=== PATIENT | male | born 1950 | race Caucasian/White ===

== ENCOUNTER 2024-10-04 19:07 | Emergency (ER) | payer MEDICARE, SELFPAY ==
[2024-10-04 19:09] VITALS: BP 150/79; PULSE 78; RESP 18; TEMP 36.8; O2SAT 99; BMI 21.5
--- NOTE | 2024-10-04 19:15 | DI.CT.S_ITS ---
PROCEDURE: CT HEAD/BRAIN WO CON INDICATIONS: fall/hit head/on Plavix TECHNIQUE: Noncontrast 4.5 mm thick angled axial sections acquired from the foramen magnum to the vertex, with coronal and sagittal reformats. For radiation dose reduction, the following was used: automated exposure control, adjustment of mA and/or kV according to patient size. COMPARISON: None. FINDINGS: Image quality: Diagnostic. CSF spaces: Basal cisterns are patent. No extra-axial fluid collections. The ventricles are symmetric in size and shape. Brain: No intracranial bleeds or mass effect. There is cerebral volume loss, with resultant ventricular and sulcal prominence. There are periventricular and deep white matter chronic small vessel ischemic changes. There is intracranial internal carotid artery atherosclerosis. Skull and face: Calvarium and visualized facial bones appear intact, without suspicious lesions. Sinuses: Visualized sinuses and mastoids are clear. IMPRESSION: No acute intracranial pathology. Dictated by: Trae Gonzalez M.D. on 10/04/2024 at 20:02 Approved by: Trae Gonzalez M.D. on 10/04/2024 at 20:02
--- NOTE | 2024-10-04 19:15 | DI.CT.S_ITS ---
PROCEDURE: CT CERVICAL SPINE WO CON INDICATIONS: fall/hit head/on Plavix TECHNIQUE: Noncontrast 3 mm thick sections acquired from the skull base to the T4 level. Sagittal and coronal reformats were then constructed. For radiation dose reduction, the following was used: automated exposure control, adjustment of mA and/or kV according to patient size. COMPARISON: None. FINDINGS: Image quality: Excellent. Bones: No acute fracture or subluxation. Straightening of the cervical lordosis. Loss of the intervertebral disc heights with pseudoarthrosis at the C5-C7 vertebral bodies multilevel facet and uncinate arthropathy. Partially identified median sternotomy wires. Soft tissues: Prevertebral soft tissues are normal in thickness. No paravertebral hematomas. No apical pneumothoraces. Severe bilateral common carotid bulb calcifications. IMPRESSION: No acute CT abnormality of the cervical spine. Dictated by: Trae Goznalez M.D. on 10/04/2024 at 20:02 Approved by: Trae Gonzalez M.D. on 10/04/2024 at 20:04
--- NOTE | 2024-10-04 19:15 | PC.NURSE ---
Pt's male tooler drove up to ambulance bay door and rang door rivera. When answered he, immediately started yelling stating he needed help now. Informed him a nurse would be out in a moment and he continued to yell. When this RN and another rn approached the ambulance bay door, tooler banging on door, yelling at staff. [employer] Salesperson was told to calm down, it wasn't until I turned my attention to the patient that tooler stopped yelling. Pt alert oriented x3. able to follow directions. After patient was taken into ER, tooler directed to the ER entrance, tooler followed directions and returned to many entrance.
--- NOTE | 2024-10-04 19:16 | EKG_ITS ---
[address] [address] [address], [place] [address] Test Date: 2024-10-04 Pat Name: Tra Joy Department: Room: Gender: Male Dogman/Woman: MARISOL : 1950 Requested By: Order Number: [id number] Reading MD: Blake Barrientos MD Measurements Intervals [place] Rate: 79 P: CT: 136 QRS: 13 QRSD: 82 T: 46 QT: 432 QTc: 495 Interpretive Statements Normal sinus rhythm Electronically Signed On 10-05-2024 7:41:57 PDT by Blake Barrientos MD
--- NOTE | 2024-10-04 19:45 | PC.NURSE ---
RN preparing meds for another patient at computer at nurses station when male grain scooper of patient steps out of room and asks for someone to come to the exam room immediatelty
--- NOTE | 2024-10-04 19:45 | PC.NURSE ---
RN at nurses station preparing meds for another patient when male oil inspector of this patient steps out of room and states I need someone in this room immediately to take care of him. He has an open head wound that needs to be cleaned and closed right now!. RN to room with introduction and male oil inspector continues to aggressively speak about the wound needing to be immediately cared for. Began to speak to patient and male oil inspector about current situation, inform that things are currently being done such as imaging and initial assessment by a chief data officer. Male oil inspector continues to escalate, makes statements about being a medic cash analyst and when a wound came in it was protocol to assess and clean the wound immediately to reduce chances of infection. RN begins to speak again, states [place] to male oil inspector and he interrupts, leans over ED stretcher and points finger at RN You will not address me like that or I will address you as BITCH! RN states to male visitor that he will not address me as such and will not speak to me in that way or he will be asked to leave. And that I would only call him Sir from now on. Male oil inspector seems to settle some and we continue to discuss current day appropriate care for a wound and head injury. At this time Rachelle Marsh RN charge came into the room and continued to listen to the conversation. Sometime through continued conversation male oil inspector again makes a statement about what names we will call each other at which time charger takes over the conversation stating that if he continues he will be asked to leave.
[2024-10-04 20:00] VITALS: BP 140/72; PULSE 72; RESP 19; O2SAT 94
[2024-10-04 20:30] VITALS: BP 128/79; PULSE 82; RESP 22; O2SAT 95
--- NOTE | 2024-10-04 20:40 | ED.FALL ---
HPI - Fall General Chief Complaint: Trauma Stated Complaint: Fall on thinners Time Seen by Provider: 10/04/24 19:29 Source: patient Mode of arrival: Wheelchair History of Present Illness HPI Narrative: 74-year-old male past medical history of HIV, hypertension presenting for mechanical trip and fall, he states that he is here visiting had a mechanical trip and fall in his host bathroom due to the fact that he slipped on the water in the bathtub. Denies LOC is on Plavix, he denies any other injuries at this time. He states he is up-to-date on his tetanus he denies any other injuries Related Data Allergies Allergy/AdvReac Type Severity Reaction Status Date / Time No Known Drug Allergies Allergy Verified 10/04/24 19:14 Review of Systems Review of Systems Narrative: General: Positive fall, Denies fever, chills, weight loss HEENT: Denies headache, eye drainage, eye irritation, head trauma, sore throat, voice change Cardiovascular: Denies any chest pain, palpitations, tachycardia Respiratory: Denies any shortness of breath, cough, wheeze, stridor GI/: Denies any abdominal pain, nausea, vomiting, diarrhea, bright red blood per rectum, melanotic stools, urinary frequency, urinary retention, dysuria, hematuria MSK: Denies any joint pain, muscle pains, swelling Skin: Cut to the top of the head Neuro: Denies any headache, lightheadedness, dizziness, fainting, weakness Psych: Denies SI/HI Patient History Social History Smoking Status: Never smoker Smoking Status: Never smoker Exam Narrative Exam Narrative: General: Cooperative, well-developed, not in acute distress HEENT: Laceration noticed the top of the head not actively bleeding approximately 3 cm in Y shape Neck: Active full range of motion, atraumatic Chest: Normal to inspection, negative crepitus, no overlying erythema ecchymosis Respiratory: Normal respiratory effort, not in acute respiratory distress, clear to auscultation bilaterally negative cough, wheeze, tachypnea, rhonchi, rales Cardiology: Regular rate rhythm negative gallop, murmur, rubs GI/: No tenderness to palpation, soft, non rigid, normal to inspection, exam deferred MSK: Full active range of motion in all 4 extremities, atraumatic, no tenderness to palpation of any bony prominences Skin: No rashes or lesions noted Neuro: Alert awake oriented x3, moves all 4 extremities spontaneously, cranial nerves intact, able to answer all questions appropriately follows commands appropriately Psych: Cooperative, negative suicidal or homicidal ideations Initial Vital Signs Initial Vital Signs: Vital Signs Temperature 98.3 F 10/04/24 19:09 Pulse Rate 78 10/04/24 19:09 Respiratory Rate 18 10/04/24 19:09 Blood Pressure 150/79 H 10/04/24 19:09 Pulse Oximetry 99 10/04/24 19:09 Oxygen Delivery Method Room Air 10/04/24 19:09 Procedures Laceration Repair Laceration 1: Time of procedure: 20:47 Site: scalp Description: other (Y shaped) Depth: simple, single layer Local Anesthetic: lidocaine 2% and with epi Amount of anesthesia used (mL): 8 Skin layer closed with: eddie (4) Course Orders Ordered: ED Orders 10/04/24 19:15 CT cervical spine wo con Stat CT head/brain wo con Stat EKG-12 Lead Stat Discontinued Medications Lidocaine/Epinephrine (Lidocaine 2% W/Epi Inj 10 Ml Vial) 10 ml INJ NOW ONE Stop: 10/04/24 20:46 Last Admin: 10/04/24 20:53 Dose: 10 ml Documented By: LS Vital Signs Vital signs: Vital Signs - 8 hr 10/04/24 19:09 10/04/24 20:00 10/04/24 20:00 Temperature 98.3 F Pulse Rate 78 72 Respiratory Rate 18 19 Blood Pressure 150/79 H 140/72 Pulse Oximetry 99 94 Oxygen Delivery Method Room Air 10/04/24 20:30 10/04/24 20:30 Temperature Pulse Rate 82 Respiratory Rate 22 Blood Pressure 128/79 Pulse Oximetry 95 Oxygen Delivery Method MDM - Fall Differential Diagnosis Differential diagnosis: Likely other (Intracranial hemorrhage, cervical neck fracture, arrhythmia) Imaging Data CT scan - head: Radiologist's Impression: [address] [address] [address] Scan Report Signed Patient: Tar Joy MR#: [id number] : 1950 Acct:[id number] Age/Sex: 74 / M Date of Service: 10/04/24 Loc: ED Accession Number: [id number] Procedure: CT head/brain wo con Ordering Provider: Emilio Jj D.O. PROCEDURE: CT HEAD/BRAIN WO CON INDICATIONS: fall/hit head/on Plavix TECHNIQUE: Noncontrast 4.5 mm thick angled axial sections acquired from the foramen magnum to the vertex, with coronal and sagittal reformats. For radiation dose reduction, the following was used: automated exposure control, adjustment of mA and/or kV according to patient size. COMPARISON: None. FINDINGS: Image quality: Diagnostic. CSF spaces: Basal cisterns are patent. No extra-axial fluid collections. The ventricles are symmetric in size and shape. Brain: No intracranial bleeds or mass effect. There is cerebral volume loss, with resultant ventricular and sulcal prominence. There are periventricular and deep white matter chronic small vessel ischemic changes. There is intracranial internal carotid artery atherosclerosis. Skull and face: Calvarium and visualized facial bones appear intact, without suspicious lesions. Sinuses: Visualized sinuses and mastoids are clear. IMPRESSION: No acute intracranial pathology. CT - cervical spine: Radiologist's Impression: [place] [address] CT Scan Report Signed Patient: Tra Joy MR#: [id number] : 1950 Acct:[id number] Age/Sex: 74 / M Date of Service: 10/04/24 Loc: ED Accession Number: [id number] Procedure: CT cervical spine wo con Ordering Provider: Emilio Jj D.O. PROCEDURE: CT CERVICAL SPINE WO CON INDICATIONS: fall/hit head/on Plavix TECHNIQUE: Noncontrast 3 mm thick sections acquired from the skull base to the T4 level. Sagittal and coronal reformats were then constructed. For radiation dose reduction, the following was used: automated exposure control, adjustment of mA and/or kV according to patient size. COMPARISON: None. FINDINGS: Image quality: Excellent. Bones: No acute fracture or subluxation. Straightening of the cervical lordosis. Loss of the intervertebral disc heights with pseudoarthrosis at the C5-C7 vertebral bodies multilevel facet and uncinate arthropathy. Partially identified median sternotomy wires. Soft tissues: Prevertebral soft tissues are normal in thickness. No paravertebral hematomas. No apical pneumothoraces. Severe bilateral common carotid bulb calcifications. IMPRESSION: No acute CT abnormality of the cervical spine. ECG Data Interpretation: EKG interpreted by ED physician sinus 79 beats per minute QTC 495 normal axis no STEMI MDM Narrative Medical decision making narrative: 74-year-old male with a past medical history of hypertension HIV presents for evaluation of mechanical trip and fall states he slipped in the bathtub states that he is visiting from [place], he states he is on Plavix modified trauma was called immediately given patient on Plavix, CT scan of the head and neck were negative for any acute findings, patient did have a Y shaped laceration to the top of his scalp not actively bleeding was repaired with 4 eddie, patient not complaining of any other injuries he is able to stand bear weight ambulate unassisted here in the emergency department he was given strict return precautions he verbalized understanding of this and agrees to being discharged home with outpatient follow up Critical Care Time Critical Care Time Critical Care Time: Yes Total Critical Care Time: 30 Attestation: Authorized and Performed by: Emilio Jj DO Total critical care time: Approximately [30] minutes Due to a high probability of clinically significant, life threatening deterioration, the patient required my highest level of preparedness to intervene emergently and I personally spent this critical care time directly and personally managing the patient. This critical care time included obtaining a history; examining the patient; pulse oximetry; ordering and review of studies; arranging urgent treatment with development of a management plan; evaluation of patient's response to treatment; frequent reassessment; and, discussions with other providers. This critical care time was performed to assess and manage the high probability of imminent, life-threatening deterioration that could result in multi-organ failure. It was exclusive of separately billable procedures and treating other patients and teaching time. Please see MDM section and the rest of the note for further information on patient assessment and treatment. Discharge Plan Departure Patient Disposition: Home Clinical Impression: Ground-level fall, Closed head injury, Complex laceration of scalp Instructions: DI for Laceration Repair -- Eddie, DI for Closed Head Injury Activity Restrictions/Additional Instructions: Please follow up with your primary care doctor You have 4 eddie that need to be removed in a proximally 1 week Please read the discharge instructions sheet carefully and bring all papers to all doctor follow-up visits, as it may contain information that your doctor may want to see. Disease processes change and evolve, if your symptoms worsen or if you develop any new symptoms that are concerning to you please return for evaluation. Your evaluation today does not show any evidence of any life-threatening/serious illnesses requiring admission to the hospital or surgery. Please follow-up with your doctor for re-evaluation in approximately 1 day. Seek immediate medical attention for any worrisome symptoms. *If you do not have a primary care provider please contact the [facility] Resource line at [phone]. They will ask some questions about your medical history and help get you set up with a doctor in the community. Stand Alone Forms: Patient Portal/API/Survey
[2024-10-04] MEDS: LIDOCAINE 2% W/EPI INJ 10 ML VIAL INJ (20:53)
[2024-10-04 21:00] VITALS: BP 138/84; PULSE 70; RESP 23; O2SAT 98
--- NOTE | 2024-10-04 21:28 | PC.NURSE ---
Pts spouse came out of room 6 demanding a nurse see the patient. Kelsea entered the room to speak to the patient and the spouse. Shortly after Malou DORSEY came to me and said that the patients spouse was being aggressive toward Kelsea and he was calling her a bitch. I entered the room and the patient was telling Kelsea that it was inappropriate that no one was repairing the wound on the patients head. Kelsea informed them about the plan of care and that the doctor would be in to see him as soon as he could. The patients spouse began to raise his voice and become more demanding about the patients care. I asked the patients spouse not to speak to staff in that manner;raising his voice and swearing at staff. The patients spouse asked me if I knew what his profession was which I responded it doesn't matter to me what your profession is,we would not come to your place of business and speak to you in this manner. 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 Pt agreed to stop and Kelsea and I walked out of the room. Shortly after the patients spouse walked out to the nurses station and demanded that the doctor come into repair the wound on the patients head. I informed him that the provider would be in as soon as he could. He then began reaching over the nurses station and pointing to different staff members asking if they were qualified to clean the patient head. I asked him to return to room 6 which he did. I entered room 6 to inform the patient about his care and that the provider may need to numb the wound prior to cleaning the wound which the patient was content with. The patients spouse stood up and said something which I do not recall his words. I do recall that he made me feel unsafe and I told him that he was making me feel unsafe and that he needed to exit to the lobby. He began laughing at me and Zachery the security expert asked him to leave the room. He walked from the ED with Zachery
== END 2024-10-04 21:26 | disposition home or self-care (01) ==
PROVIDERS: Emergency Provider Student in an Organized Health Care Education/Training Program
DX: S09.90XA Unspecified injury of head, initial encounter (principal); S01.01XA Laceration without foreign body of scalp, initial encounter; W18.2XXA Fall in (into) shower or empty bathtub, initial encounter; Z79.01 Long term (current) use of anticoagulants
CPT/HCPCS: 12002; 70450; 72125; 93005; 99283; 99291